=== PATIENT | male | born 1975 | race Caucasian/White ===

== ENCOUNTER 2016-07-09 06:30 | Emergency (ER) | payer SELFPAY ==
[~2016-07-09] VITALS: Ht 190.5 cm; Wt 151.0 kg
[~2016-07-09 06:30] MED LIST: CEPH500C2 PO; DAPA5TAB PO; IBUP-1547 PO; LISI2.5T2 PO; METF1000 PO; PRAV10TA42 PO
[2016-07-09 06:34] VITALS: PULSE 83; RESP 16; TEMP 98; O2SAT 98; Ht 190.5 cm; Wt 151.0 kg
--- OUTSIDE RECORDS SUMMARY | 2016-07-09 06:36 | XMS REPORT | Continuity of Care Document ---
Author Author [facility] Organization [facility] Address Unknown Phone Unavailable Support Name Relationship Address Phone JOSE ROBERTO EVANS APRN Caregiver [address] [place] [address] Unavailable SAPNALILIA PHILLIPSLEY Next Of Kin [address] [facility] [place] [phone] Insurance Providers Guarantor Abdon Canchola Address [address] [facility] [place] [phone] Payer [employer] Other Policy Number [id number] Subscriber's Name Abdon Canchola Relationship 18 Self Group Number [id number] Chief Complaint and Reason for Visit Chief Complaint Cough,Fever,Flu,URI Reason for Visit [id number] Problems Active Problems Medical Problem Onset Date Status Strep pharyngitis Unknown Acute Medications Current Home Medications Medication Dose Units Route Directions Days Qty Instructions Start Date Cephalexin 500 Mg Capsule 500 Mg Oral Twice A Day 10 Days 20 Capsule 04/02/16 Dapagliflozin Propanediol (Farxiga) 5 Mg Tablet 5 Mg Oral Daily 04/02/16 Ibuprofen 800 Mg Tablet 1 Tab Oral Every 6 Hours as needed for Pain 04/02/16 Lisinopril Unknown Strength Tablet Unknown Dose Oral 04/02/16 Metformin Hcl (Glucophage) 1,000 Mg Tablet 1,000 Mg Oral Twice Daily With Meals Take 1 tablet, by mouth, 2 times a day with meals. 04/02/16 Pravastatin Sodium Unknown Strength Tablet Unknown Dose Oral Bedtime Take 1 tablet, by mouth, daily at bedtime. 04/02/16 Social History No social history. Hospital Discharge Instructions No hospital discharge instructions. Plan of Care Discharge Date 04/02/16 5:10pm Disposition 01 DISCHARGED HOME, SELF-CARE Condition at Discharge Stable Instructions/Education Provided DI for Strep Throat Prescriptions See Medication Section Functional Status No functional status results. Allergies, Adverse Reactions, Alerts Allergen Type Severity Reaction Status Last Updated Penicillin Allergy Unknown Active 04/02/16 Immunizations No immunization records. Vital Signs Acute Vital Signs Vital Response Date/Time Temperature (Fahrenheit) 98.3 deg F (96.8 - 99.1) 04/02/2016 4:23pm Temperature (Calculated Celsius) 36.97704 degrees C (36.0 - 37.3) 04/02/2016 4:23pm Pulse Rate (adult) 78 bpm (60 - 100) 04/02/2016 4:23pm Respiratory Rate 18 breaths/min (10 - 20) 04/02/2016 4:23pm O2 Sat by Pulse Oximetry 96 % (90 - 100) 04/02/2016 4:23pm Blood Pressure 114/75 mm Hg 04/02/2016 4:23pm Height (Feet) 6 feet 04/02/2016 4:23pm Height (Inches) 4.00 inches 04/02/2016 4:23pm Weight (Kilograms) 150.700 kg 04/02/2016 4:23pm Body Mass Index (BMI) 40.0 04/02/2016 4:23pm Results Laboratory Results Test Name Result Units Flags Reference Collection Date/Time Result Date/ Time Comments Group A Streptococcus Screen POSITIVE A NEGATIVE 04/02/2016 4:44pm 05/2016 4:57pm Procedures No known history of procedures. Encounters Encounter Location Arrival/Admit Date Discharge/Depart Date Attending Provider Departed Emergency Room [facility] 04/02/16 3:52pm 04/02/16 5: 10pm JOSE ROBERTO EVANS APRN Recent Diagnosis
--- OUTSIDE RECORDS SUMMARY | 2016-07-09 06:36 | XMS REPORT ---
Author Author Suyapa Fabian Organization [facility] Spec Address [address] [place] [address] Care Team Providers Care Insurance Clerk Name Role Phone CarenSuyapa Unavailable [phone] PROBLEMS Type Condition ICD9-CM Code [id number] Code Onset Dates Condition Status SNOMED Code Problem Diabetes 250.00 Active 79423284 Problem Depression 311 Active 17794876 Problem Anxiety 300.00 Active 18830508 Problem HTN (hypertension) 401.9 Active 78606507 Problem Dyslipidemia 272.4 Active 001907341 Problem Hypogonadism male 257.2 Active 31954337 Problem Subungual hematoma of finger of right hand, initial encounter S60.10XA Active 235759075 Problem Low back pain M54.5 Active 383705805 Problem Depression F32.9 Active 23149582 Problem Hypogonadism in male E29.1 Active 96174281 Problem Essential (primary) hypertension I10 Active 63638619 Problem Type 2 diabetes mellitus without complications E11.9 Active 89730924 ALLERGIES Unknown Allergies SOCIAL HISTORY No smoking Hx information available PLAN OF CARE VITAL SIGNS MEDICATIONS Unknown Medications RESULTS No Results PROCEDURES No Known procedures IMMUNIZATIONS No Known Immunizations
--- OUTSIDE RECORDS SUMMARY | 2016-07-09 06:37 | XMS REPORT ---
Author Author SuzanneSuyapa badillo Organization [facility] Spec Address [address] [place] [address] Care Team Providers Care Body Masker Name Role Phone Suyapa Fabian Unavailable [phone] PROBLEMS Type Condition ICD9-CM Code [id number] Code Onset Dates Condition Status SNOMED Code Problem Diabetes 250.00 Active 62578541 Problem Depression 311 Active 08160933 Problem Anxiety 300.00 Active 60195373 Assessment Type 2 diabetes mellitus without complications E11.9 Mar, Active 851331541 Problem HTN (hypertension) 401.9 Active 18946216 Problem Dyslipidemia 272.4 Active 331372984 Problem Hypogonadism male 257.2 Active 30455014 Problem Subungual hematoma of finger of right hand, initial encounter S60.10XA Active 096400849 Problem Low back pain M54.5 Active 974948081 Problem Depression F32.9 Active 49287474 Problem Hypogonadism in male E29.1 Active 87089089 Problem Essential (primary) hypertension I10 Active 58029287 Problem Type 2 diabetes mellitus without complications E11.9 Active 29763309 ALLERGIES Substance Reaction Event Type Date Status penicillin Unknown Drug Allergy Mar, Active SOCIAL HISTORY No smoking Hx information available PLAN OF CARE Activity Details Pending Test X ray : Finger, Rt, 3 Views 3 Months,Reason: VITAL SIGNS Temperature 97.0 degrees Fahrenheit 2016-03-15 Weight 329.5 lbs 2016-03-15 Height 75.5 in 2016-03-15 BMI 40.64 kg/m2 2016-03-15 Oximetry 97 2016-03-15 Blood pressure systolic 138 mm Hg 2016-03-15 Blood pressure diastolic 76 mm Hg 2016-03-15 MEDICATIONS Medication Instructions Dosage Frequency Start Date End Date Duration Status farxiga 10 mg oral once daily 1 tablet 24h Jan, 30 days Active ibuprofen 800 mg orally 3 times a day 1 tab(s) 8h July, 30 days Active pravastatin 40 mg orally once a day (at bedtime) 1 tab(s) Dec, 30 Active lisinopril 20 mg orally once a day 1 tab(s) 24h Dec, 30 Active metformin 1000 mg orally 2 times a day 1 tab(s) 12h Dec, 30 Active citalopram 40 mg orally once a day 1 tab(s) 24h May, 30 Active RESULTS No Results PROCEDURES Procedure Date Ordered Related Diagnosis Body Site X-Ray Exam of Finger (s) Mar 15, 2016 Office/Outpatient Visit-Est Mar 15, 2016 IMMUNIZATIONS No Known Immunizations
--- OUTSIDE RECORDS SUMMARY | 2016-07-09 06:37 | XMS REPORT | Continuity of Care Document ---
Author Author [facility] Organization [facility] Address Unknown Phone Unavailable Allergies Active Description Code Type Severity Reaction Onset Reported/Identified Relationship to Patient Clinical Status Yes Penicillins Penicillins Drug Allergy Unknown UNKNOWN 11/30/2014 Medications Problems Procedures Results Test Result Range CBC W/DIFF - 11/30/14 08:32 BASOPHIL # 0.0 k/cumm 0.0-0.2 BASOPHIL % 1 % 0-1 EOSINOPHIL # 0.1 k/cumm 0.1-0.5 EOSINOPHIL % 1 % 2-4 GRANULOCYTE # 5.7 k/cumm 2.0-9.0 GRANULOCYTE % 73 % 50-75 LYMPHOCYTE # 1.3 k/cumm 1.0-4.0 LYMPHOCYTE % 17 % 20-30 MEAN CELL HGB 30.0 pg 27.0-33.0 MEAN CELL HGB CONCENTRATION 34.5 g/dL 32.0-37.0 MEAN CELL VOLUME 87.0 fl 80.0-100.0 MONOCYTE # 0.7 k/cumm 0.1-1.0 MONOCYTE % 9 % 4-6 RED BLOOD CELL 5.63 m/cumm 4.00-6.00 RED CELL DISTRIBUTION WIDTH 14.3 % 11.0- 15.6 WHITE BLOOD CELL 7.8 k/cumm 5.0-10.0 HEMOGLOBIN 16.9 gm/dL 14.0-18.0 HEMATOCRIT 49.0 % 40.0-54.0 PLATELET COUNT 224 k/cumm 150-400 Microbiology HEPATIC FUNCTION PANEL - 11/30/14 08:32 BILI UNCONJUGATED 0.6 mg/dL 0.0-0.7 AST/SGOT 18 Units/L 10-37 ALT/SGPT 32 Units/L < 66 TOTAL PROTEIN 8.5 gm/dL 6.4-8.2 ALBUMIN 4.2 gm/dL 3.4-5.0 BILI TOTAL 0.8 mg/dL 0.0-1.0 ALKALINE PHOSPHATASE TOTAL 96 IU/L 45- 117 BILI CONJUGATED 0.2 mg/dL 0.0-0.3 Microbiology LIPASE - 11/30/14 08:32 LIPASE 79 Units/L 73-393 THYROID STIM HORMONE (TSH) - 11/30/14 08:32 THYROID STIM HORMONE (TSH) 1.60 uIU/mL 0.34-4.82 CHEM/HEM PROFILE-BEDSIDE - 11/30/14 08:38 POTASSIUM 4.0 mmol/L 3.5-5.3 METHOD Bedside ANION GAP 22 mmol/L 10-20 METHOD Bedside GLUCOSE 223 mg/dL 70-99 BLOOD UREA NITROGEN 7 mg/dL 7-20 CREATININE 0.5 mg/dL 0.7-1.3 HEMOGLOBIN 17.7 gm/dL 14.0-18.0 HEMATOCRIT 52.0 % 40.0-54.0 SODIUM 136 mmol/L 135-148 CHLORIDE 100 mmol/L 98-110 CARBON DIOXIDE 19 mmol/L 21-32 CALCIUM IONIZED 4.6 mg/dL 4.5-5.3 Microbiology TROPONIN I BEDSIDE - 11/30/14 08:41 METHOD Bedside TROPONIN I < 0.04 ng/mL < 0.11 Microbiology Encounters ACCT No. Visit Date/Time Discharge Status Pt. Type Provider Facility Loc./Unit Complaint [id number] 11/30/2014 08:24:00 2014 09:58:00 DIS Emergency [facility] W.EDS
--- OUTSIDE RECORDS SUMMARY | 2016-07-09 06:37 | XMS REPORT ---
Author Author CarenSuyapa Organization [facility] Spec Address [address] [place] [address] Care Team Providers Care Gear Repair Supervisor Name Role Phone Suyapa Fabian Unavailable [phone] PROBLEMS Type Condition ICD9-CM Code [id number] Code Onset Dates Condition Status SNOMED Code Problem Diabetes 250.00 Active 78711702 Problem Depression 311 Active 12121148 Problem Anxiety 300.00 Active 68961852 Problem HTN (hypertension) 401.9 Active 20842418 Problem Dyslipidemia 272.4 Active 646514225 Problem Hypogonadism male 257.2 Active 76578232 Problem Subungual hematoma of finger of right hand, initial encounter S60.10XA Active 845374766 Problem Low back pain M54.5 Active 778419339 Problem Depression F32.9 Active 16743822 Problem Hypogonadism in male E29.1 Active 50660884 Problem Essential (primary) hypertension I10 Active 56269207 Problem Type 2 diabetes mellitus without complications E11.9 Active 59713754 ALLERGIES Unknown Allergies SOCIAL HISTORY No smoking Hx information available PLAN OF CARE VITAL SIGNS MEDICATIONS Medication Instructions Dosage Frequency Start Date End Date Duration Status farxiga 10 mg oral once daily 1 tablet 24h Jan, 30 days Active RESULTS No Results PROCEDURES No Known procedures IMMUNIZATIONS No Known Immunizations
--- NOTE | 2016-07-09 06:45 | ERPDOC ---
Departure Disposition Decision Date: Jul 09, 2016 Disposition Decision Time: 06:52 Disposition: 01 DISCHARGED HOME, SELF-CARE Impression Impression Impression: Primary Impression: Acute bilateral low back pain without sciatica Severity: Moderate Condition: Stable Seen By: Physician only Referrals: VICENTE ORTIZ MD [facility] he may follow-up with Patient Instructions: Acute Low Back Pain (ED) Problems/Meds/Labs Reviewed?: Yes Medications reviewed and manag: Yes Additional Instructions: Recommend Aleve [id number] 2 pills twice a day May take baclofen and hydrocodone with the Aleve Follow-up if not improving by another week Departure Forms: Return to Work/School Permit Return to Work/School Date: Jul 10, 2016 Follow up care ordered?: Yes Mental Status: Alert, Oriented Scripts Hydrocodone/Acetaminophen ([place] 5-325 Tablet) 5-325 Tablet 1-2 TAB PO Q6H Y for PAIN, #30 TAB Prov: JONNY PARMAR MD 07/09/16 Baclofen (Baclofen) 20 Mg Tablet 1 TAB PO TID Y for PAIN &/OR SPASM, #30 TAB Prov: JONNY PARMAR MD 07/09/16 HPI - Back Pain General Chief Complaint: Low Back Pain or Injury Stated Complaint: BACK PAIN Time Seen by Provider: 06:44 Source: patient Exam Limitations: no limitations HPI - Back Pain Initial Comments Patient is a 40-year-old male presents emergency room for evaluation of low back pain. Patient has a history of having back issues with L4-L5 problems. Patient had overuse injury approximately a week ago since that time has been having bilateral lower back pain. Patient today decided present to the ER for evaluation of pulling of 10/10 pain. Patient ambulates in. Occurred At: home Onset/Timing: Rapid, Constant Duration: 1 week Pain/Severity Scale: Now & Worst: 10/10 Location: lumbar spine, paraspinous muscles Allergies: Coded Allergies: Penicillins (Verified Allergy, Unknown, 07/09/16) Past History Past Medical History Metabolic: diabetes, hypertension Social History # of Packs/Tins per Day: 1.0 # of Years: 2 Second Hand Exposure: No Quit Date: Apr 01, 1992 Substance Use Type: former substance user Alcohol Intake: former alcohol drinker Review of Systems Constitutional Constitutional: DENIES: appetite decrease, chills, dizziness, fever, weakness Eyes Vision: DENIES: double vision, loss of visual pedraza ENMT Sinuses: DENIES: congestion, rhinorrhea Mouth/Throat: DENIES: scratchy throat, sore throat Cardiovascular Cardiac: DENIES: chest pain, dyspnea on exertion Pulmonary Respiratory: DENIES: cough, dyspnea, sputum, tachypnea GI Upper Abdomen: DENIES: nausea, pain, vomiting Lower Abdomen: DENIES: constipation, diarrhea, pain General: DENIES: frequency, urgency Musculoskeletal General: pain, DENIES: cramps, weakness Integumentary Skin: DENIES: color change, itching Endocrine Endocrine: DENIES: heat/cold intolerance Hematologic/Lymphatic Hematologic/Lymphatic: DENIES: anemia Physical Exam General General Nourishment: well nourished, well developed General Body Habitus: well groomed Vitals and Pain Weight: Kilograms: Height (feet): 6 Height (inches): 4.00 Triage Pain Scale: RN VS reviewed by Provider: Yes Eyes (brief) Eyes Brief: found: EOMI ENMT (brief) ENMT Brief: FOUND: mucosa moist, normal dentition, NOT FOUND: nasal erythema, pharnyx erythema, tonsillar deviation Neck (brief) Neck: NOT FOUND: adenopathy, spasm, tenderness Respiratory (brief) Respiratory: FOUND: clear all pedraza, equal bilaterally, NOT FOUND: rales, wheezes Cardiovascular (brief) Cardiac: FOUND: regular rate, regular rhythm Capillary Refill: <2 sec Abdomen (brief) Abdominal Brief: FOUND: bowel normo active x4, soft, NOT FOUND: distended, tender Lymphatic (brief) Lymphatic Brief: NOT FOUND: adenopathy Musculoskeletal (brief) Musculoskeletal Brief: NOT FOUND: spasm, tenderness Integumentary (brief) Integumentary Brief: FOUND: dry, pink, warm, NOT FOUND: rash Neurologic (brief) Neurological Brief: FOUND: CN w/o gross def to obs, motor-no gross deficits, sensory-no gross deficits Psychiatric (brief) Psychiatric Brief: FOUND: alert, oriented Differential Diagnoses Considering: Compression Fracture, Fracture, Lumbar Sprain, Lumbar Strain Progress Results/Orders Orders Procedure Category Date Status Time Ketorolac (Toradol) PHA 07/09/16 Complete 07:00 Orphenadrine (Norflex) PHA 07/09/16 Complete 07:00 Medications Current ED Medications Ketorolac Tromethamine (Toradol) 60 mg O ONCE IM Last administered on 06:58; Start 07/09/16 at 07:00; Stop 07/09/16 at 07:01; Status DC Orphenadrine Citrate (Norflex) 60 mg O ONCE IM Last administered on 07/09/16 06:57; Start 07/09/16 at 07:00; Stop 07/09/16 at 07:01; Status DC JONNY PARMAR MD Jul 09, 2016 06:45
--- NOTE | 2016-07-09 06:45 | NUR ---
DR PARMAR IN
[2016-07-09] MEDS ORDERED: HYDR-4246 PO (06:54)
[2016-07-09] MEDS ORDERED: BACL20TA PO (06:54)
[2016-07-09] MEDS ORDERED: ORPHENADRINE 60mg/2ml INJECTION IM ONE (07:00)
[2016-07-09] MEDS ORDERED: KETOROLAC 60mg/2ml INJECTION IM ONE (07:00)
[2016-07-09 07:13] VITALS: BP 134/74
--- NOTE | 2016-07-09 07:13 | NUR ---
DISMISSAL FEELS SOME BETTER. DISCHARGED
--- OUTSIDE RECORDS SUMMARY | 2016-07-09 07:27 | XMS REPORT | Continuity of Care Document ---
Author Author [facility] Organization [facility] Address Unknown Phone Unavailable Allergies Active Description [...] Status Pt. Type Provider Facility Loc./Unit Complaint [id number] 11/30/2014 08:24:00 2014 09:58:00 DIS Emergency [facility] W.EDS
== END 2016-07-09 07:13 | disposition home or self-care (01) ==
LOC: ED 06:30
DX: M54.5 Low back pain (principal)
CPT/HCPCS: 96372